=== PATIENT | male | born 1955 | race Hispanic/Latino ===

== ENCOUNTER 2017-09-29 11:25 | Emergency (ER) | payer OTHER ==
[2017-09-29] MEDS ORDERED: FLUORESCEIN SODIUM 0.6 MG STRIP ONE (12:08)
[2017-09-29] MEDS ORDERED: TETRACAINE HCL 0.5% 4 ML OPHTH SOLN ONE (12:08)
[2017-09-29] MEDS ORDERED: NA BORATE/BORIC AC/H2O/NACL 120 ML OPHTH IRRIG SOLN ONE (12:08)
== END 2017-09-29 12:33 | disposition home or self-care (01) ==
LOC: EDH 11:25
DX: S05.02XA Injury of conjunctiva and corneal abrasion without foreign body, left eye, initial encounter (principal); Z72.0 Tobacco use; X58.XXXA Exposure to other specified factors, initial encounter; Y93.89 Activity, other specified; Y92.89 Other specified places as the place of occurrence of the external cause; Y99.8 Other external cause status